=== PATIENT | female | born 1960 | race Caucasian/White ===

== ENCOUNTER → 2016-09-19 | Outpatient (CLI) | payer OTHER ==
[~2016-09-19] MED LIST: ALEVE220 M1 PO; LORTAB 5 MG/5001 TA1 PO; NORCO 5-325 TA1 EACH PO; PREDNISONE 20 M20 MG PO; TYLENOL325 MG PO; VALIUM2 MG PO
== END ==
LOC: BC 01:54
DX: Z12.31 Encounter for screening mammogram for malignant neoplasm of breast (principal)

== ENCOUNTER → 2016-09-21 | Outpatient (CLI) | payer OTHER | LOC: ULTRA 12:48 | DX: N63 Unspecified lump in breast (principal); N60.01 Solitary cyst of right breast ==

== ENCOUNTER → 2016-12-09 | Outpatient (CLI) | payer OTHER | LOC: CAT 07:56 | DX: Z13.6 Encounter for screening for cardiovascular disorders (principal) ==

== ENCOUNTER → 2017-03-20 | Outpatient (CLI) | payer OTHER ==
[~2017-03-20] VITALS: Ht 157.5 cm; Wt 63.6 kg
[~2017-03-20] MED LIST changes: +ASPIR 8181 MG PO; +LIPITOR10 MG PO
--- NOTE | ~2017-03-20 | HPC ---
[facility] [address] [place] [address] PAIN MANAGEMENT CONSULTATION Name: LISETTE FLORENTINO Room #: REG MATTPastora Azul#: [id number] Admission: 03/20/17 Attend Phys: Ector Ramirez MD Discharge: Date of : 62 Report #: [id number] THIS REPORT FOR: //name// CC: Blade Ramirez DATE OF SERVICE: 03/20/2017 Followup visit for recurring left lumbar radiculopathy secondary to chronic disk protrusion at L4-L5. INDICATIONS: The patient returned to the pain clinic today with exacerbation of lumbar radicular symptoms. The record reflected she has had intermittent injections performed dating back as far as 2007. She had her first epidural injection in 2007 with sustained relief for a couple of years. I saw her back in 2009 with another injection. She then had an injection in 2011 and another in 2013. It has been 3 years since she was last here. Each time she has had an epidural injection, she has presented with symptoms of radiculopathy into the hip. It progressively worsened and have not responded to conservative therapy and intensity of pain in the range of 7-10. It is sharp, stabbing and burning, it is worse with lying down. Each time she has had an injection, she has had nearly complete pain relief that lasted years. To say, she is a responder to this therapy would be an understatement. MEDICATIONS: Atorvastatin, aspirin, acetaminophen and Aleve. Combination of aspirin plus a nonsteroidal anti-inflammatory drug Naproxen was discussed and risks of GI irritation. ALLERGIES: MORPHINE. PAST MEDICAL HISTORY: Otherwise remarkable, there has been no interval health history change. SOCIAL HISTORY: She denies tobacco, drinks alcohol socially. She works at [employer] on a part-time basis. PHYSICAL EXAMINATION: She is pleasant, alert and oriented. Blood pressure 141/86, heart rate 81, respirations 16, BMI is 25.6. She has pain in her left hip that radiates down the posterior lateral aspect of the leg. This is all more at the L5 distribution likely entrapment of the L5 nerve root through the lateral recess. Straight leg raising is mildly positive. IMPRESSION: Lumbar radiculopathy on the left L5 related to an L4-L5 and L5-S1 disk degeneration. [address] [address] PAIN MANAGEMENT CONSULTATION Name: LISETTE FLORENTINO Room #: REG JAMARI Azul#: [id number] Admission: 03/20/17 Attend Phys: Ector Ramirez MD Discharge: Date of : 62 Report #: [id number] RECOMMENDATION: Epidural steroid injection under fluoroscopic guidance. She was taken to the fluoroscopic suite, placed prone, skin prepped with ChloraPrep. Skin anesthetized over L4-L5. A 20-gauge Tuohy epidural needle was advanced in the epidural space, left of midline. No blood or CSF was aspirated. 1 mL of Omnipaque injected and excellent spread of dye observed along the lateral recess was followed by 3 mL of 0.5% lidocaine mixed with 80 mg triamcinolone. She tolerated the procedure well and was observed for 45 minutes and discharged. Followup visit as needed. By: [id number] Ector Ramirez MD /nt
[2017-03-20 08:13] VITALS: BP 141/86
== END | disposition home or self-care (01) ==
LOC: PAIN 07:07
DX: M54.16 Radiculopathy, lumbar region (principal); Z88.8 Allergy status to other drugs, medicaments and biological substances; Z79.899 Other long term (current) drug therapy; Z79.1 Long term (current) use of non-steroidal anti-inflammatories (NSAID)

== ENCOUNTER → 2017-09-20 | Outpatient (CLI) | payer OTHER | LOC: RAD 00:37 → BC 08:53 → RAD 13:48 | DX: Z12.31 Encounter for screening mammogram for malignant neoplasm of breast (principal) ==

== ENCOUNTER 2018-06-06 13:17 | Emergency (ER) | payer OTHER ==
[~2018-06-06] VITALS: Ht 157.5 cm; Wt 58.1 kg
[2018-06-06 13:17] VITALS: BP 172/102
[2018-06-06] MEDS ORDERED: NORCO 5-325 TA1 EACH PO (14:57)
== END 2018-06-06 15:06 | disposition home or self-care (01) ==
LOC: ER 13:17
DX: S80.12XA Contusion of left lower leg, initial encounter (principal); Z88.5 Allergy status to narcotic agent; W01.0XXA Fall on same level from slipping, tripping and stumbling without subsequent striking against object, initial encounter; Y93.89 Activity, other specified; Y92.89 Other specified places as the place of occurrence of the external cause; Y99.8 Other external cause status

== ENCOUNTER 2018-09-15 19:20 | Emergency (ER) | payer OTHER ==
[~2018-09-15] VITALS: Ht 157.5 cm; Wt 59.0 kg
[2018-09-15] MEDS ORDERED: PREDNISONE 20 M20 MG PO (19:52)
[2018-09-15] MEDS ORDERED: MOBIC7.5 MG PO (20:53)
[2018-09-15] MEDS ORDERED: NORCO 5-325 TA1 EACH PO (20:53)
[2018-09-15 21:32] VITALS: BP 166/87
== END 2018-09-15 21:33 | disposition home or self-care (01) ==
LOC: ER 19:20
DX: S29.011A Strain of muscle and tendon of front wall of thorax, initial encounter (principal); X50.9XXA Other and unspecified overexertion or strenuous movements or postures, initial encounter; Y93.89 Activity, other specified; Y92.89 Other specified places as the place of occurrence of the external cause; Y99.8 Other external cause status; Z88.5 Allergy status to narcotic agent

== ENCOUNTER → 2018-10-02 | Outpatient (CLI) | payer OTHER ==
[~2018-10-02] MED LIST changes: +MOBIC7.5 MG PO
== END ==
LOC: RAD 01:18
DX: Z12.31 Encounter for screening mammogram for malignant neoplasm of breast (principal)

== ENCOUNTER → 2019-07-02 | Outpatient (CLI) | payer OTHER | LOC: RAD 15:26 | DX: M47.812 Spondylosis without myelopathy or radiculopathy, cervical region (principal); M53.82 Other specified dorsopathies, cervical region ==

== ENCOUNTER → 2019-07-16 | Outpatient (CLI) | payer OTHER | LOC: MRI 11:23 | DX: M50.122 Cervical disc disorder at C5-C6 level with radiculopathy (principal); M48.02 Spinal stenosis, cervical region ==

== ENCOUNTER → 2019-11-12 | Outpatient (CLI) | payer OTHER | LOC: BC 09:28 | DX: Z12.31 Encounter for screening mammogram for malignant neoplasm of breast (principal) ==

== ENCOUNTER 2020-05-14 20:17 | Emergency (ER) | payer OTHER ==
[~2020-05-14] VITALS: Ht 157.5 cm; Wt 63.5 kg
[2020-05-14 21:00] VITALS: BP 171/88
== END 2020-05-14 21:00 | disposition home or self-care (01) ==
LOC: ER 20:17
DX: R06.02 Shortness of breath (principal); Z20.828 Contact with and (suspected) exposure to other viral communicable diseases; Z98.890 Other specified postprocedural states; Z88.5 Allergy status to narcotic agent

== ENCOUNTER → 2020-11-10 | Outpatient (CLI) | payer OTHER | LOC: RAD 09:43 → BC 10:49 | PROVIDERS: ATTEND Obstetrics & Gynecology | DX: Z12.31 Encounter for screening mammogram for malignant neoplasm of breast (principal) ==

== ENCOUNTER → 2020-12-04 | Outpatient (CLI) | payer OTHER | LOC: CAT 08:39 | PROVIDERS: ATTEND Family Medicine | DX: Z13.6 Encounter for screening for cardiovascular disorders (principal) ==

== ENCOUNTER → 2020-12-09 | Outpatient (CLI) | payer OTHER | LOC: CAT 12-04 09:31 | PROVIDERS: ATTEND Family Medicine | DX: K43.9 Ventral hernia without obstruction or gangrene (principal); K42.9 Umbilical hernia without obstruction or gangrene; K57.32 Diverticulitis of large intestine without perforation or abscess without bleeding ==

== ENCOUNTER → 2020-12-29 | Outpatient (CLI) | payer OTHER | LOC: ULTRA 09:40 | PROVIDERS: ATTEND Family Medicine | DX: N83.202 Unspecified ovarian cyst, left side (principal) ==